=== PATIENT | male | born 1970 | race Caucasian/White ===

== ENCOUNTER 2020-01-12 07:57 | Outpatient (REF) | payer SELFPAY | END 2020-01-12 07:58 | disposition home or self-care (01) | LOC: HO.HAP 07:57 | PROVIDERS: PCP Family Medicine; Referring Provider Family Medicine; Visit Provider Family Medicine | DX: Z13.89 Encounter for screening for other disorder (principal) | CPT/HCPCS: 92700 ==

== ENCOUNTER → 2020-01-12 09:32 | Outpatient (BNVA) | payer OTHER, SELFPAY | PROVIDERS: PCP Family Medicine; Visit Provider Physician Assistant Medical | DX: M65.4 Radial styloid tenosynovitis [de Quervain] (principal); M18.11 Unilateral primary osteoarthritis of first carpometacarpal joint, right hand | CPT/HCPCS: 73110; 73130; 99203 ==

== ENCOUNTER 2020-01-28 15:17 | Outpatient (REF) | payer SELFPAY | END 2020-01-28 15:18 | disposition home or self-care (01) | LOC: HO.HAP 15:17 | PROVIDERS: PCP Family Medicine; Referring Provider Family Medicine; Visit Provider Family Medicine | DX: Z13.89 Encounter for screening for other disorder (principal) | CPT/HCPCS: 92700 ==

== ENCOUNTER → 2020-02-02 09:07 | Outpatient (BNVA) | payer OTHER, SELFPAY | PROVIDERS: PCP Family Medicine; Visit Provider Physician Assistant Medical | DX: S63.501D Unspecified sprain of right wrist, subsequent encounter (principal); X58.XXXD Exposure to other specified factors, subsequent encounter; M18.9 Osteoarthritis of first carpometacarpal joint, unspecified | CPT/HCPCS: 99213 ==

== ENCOUNTER 2020-02-16 15:51 | Outpatient (REF) | payer OTHER, SELFPAY ==
--- NOTE | 2020-02-16 16:45 | MR_ITS ---
EXAMINATION: MR WRIST WITHOUT CONTRAST, RIGHT MR HAND WITHOUT CONTRAST, RIGHT CLINICAL INFORMATION: Second pain weakness, repetitive use injury. COMPARISON: X-rays of the right hand and wrist 02/16/2020 TECHNIQUE: MRI of the right wrist was performed using routine sequences on a high-field scanner. MRI of the right hand was performed utilizing routine sequences on a high-field scanner. FINDINGS: RIGHT WRIST: TRIANGULAR FIBROCARTILAGE COMPLEX: There is some heterogeneity along the carpal side of the central disc compatible with degenerative change or partial tearing. See coronal image 10 series 2. No full-thickness defect. The periphery of the triangular fibrocartilage is intact. The dorsal and volar distal radioulnar ligaments are intact. INTRAOSSEOUS LIGAMENTS: Intact. MUSCLES AND TENDONS: Intact. ARTICULAR CARTILAGE/MARROW: There is a 6 mm oval-shaped ossific fragment abutting and possibly articulating with the dorsal aspect of the 2nd and 3rd metacarpal bases. This could reflect the carpal boss. Minimal edema versus residual red marrow in the fragment. Minimal, if any, degenerative changes crossing the possible articulation. See axial image 12 series 5. See sagittal image 9 series 9. Mild degenerative changes between the capitate and trapezoid with small subchondral or enthesopathic cysts on both sides of the joint. TRIQUETRUM PISIFORM JOINT: Mild osteoarthritis manifested by cartilage heterogeneity and marginal osteophytes. JOINT FLUID: Normal. MISCELLANEOUS: There is a lobulated fluid collection abutting the dorsal aspect of the articulation between the capitate and trapezium having the appearance of a synovial recess or ganglion cyst. This fluid collection measures 8 x 4 x 9 mm. See axial image 11 series 6. NEUROVASCULAR STRUCTURES: Normal. SUBCUTANEOUS SOFT TISSUES: Normal. RIGHT HAND: ARTICULAR CARTILAGE/MARROW: Osteoarthritis involving the IP joint of the thumb and 2nd and 3rd DIP joints, better appreciated on prior radiographs. Small marginal osteophytes noted. The remaining bone and joints of the hand are unremarkable. MUSCLES AND TENDONS: Normal. LIGAMENTOUS CAPSULAR STRUCTURES: Normal. NEUROVASCULAR STRUCTURES: Normal. SUBCUTANEOUS SOFT TISSUES: Normal. MR/MR wrist RT wo con IMPRESSION: RIGHT WRIST: Degenerative change versus partial tearing of the central triangular fibrocartilage. Osseous fragment abutting the base of the 2nd and 3rd metacarpals may reflect the carpal boss. Minimal, if any, edema or degenerative change associated with this. Correlate clinically to determine if this has any clinical significance. Mild osteoarthritis of the carpal joints. Synovial recess versus ganglion cyst along the dorsal aspect of the carpal bones, as noted. RIGHT HAND: Osteoarthritis of the interphalangeal joints better appreciated on prior radiographs.
== END 2020-02-16 15:52 | disposition home or self-care (01) ==
LOC: HO.MRI 15:51
PROVIDERS: Visit Provider Internal Medicine
DX: M25.531 Pain in right wrist (principal); M79.641 Pain in right hand; R53.1 Weakness
CPT/HCPCS: 73218; 73221

== ENCOUNTER 2020-02-21 15:09 | Outpatient (REF) | payer SELFPAY ==
--- NOTE | 2020-02-21 15:32 | MHC.AU.P13 ---
Hearing Instrument Follow-Up- Binaural Date of Visit: 02/21/20 Right Ear: Microfilm Duplicating Unit Supervisor: Model: Freemaneo M 50-312 Serial Number: [id number] Warranty: 06/29/2021 Battery Size: 312 Color: Silver [place]send Supervisor Water Softener Service: #2 medium Type of Dome: Medium Open Type of Wax Guard: CeruShield Disk Dispensed By: [facility] Date of Fittin04/16/2018 Left Ear: Microfilm Duplicating Unit Supervisor: Phonak Model: Freemaneo M 50-312 Serial Number: [id number] Warranty: 06/29/2021 Battery Size: 312 Color: Silver [place]send Supervisor Water Softener Service: #2 Medium Type of Dome: Medium Open Type of Wax Guard: CeruShield Disk Dispensed By: [facility] Date of Fittin04/16/2018 Follow-Up Summary: Patient dropped off his right hearing aid, reporting that there was no audio coming from it, but all other features are still working. Tried a different adapted physical education specialist, and still not working. Debris (possibly rust) noted in battery compartment and by adapted physical education specialist prongs. Recommendations: Hearing aid was sent to [employer] for repair. Patient will be contacted when it has arrived. Diagnosis Code(s): Primary Diagnosis: H90.3 Bilateral Sensorineural Hearing Loss Signature: Provider: Freeman Thompson, KAPIL-A
== END 2020-02-21 15:10 | disposition home or self-care (01) ==
LOC: HO.HAP 15:09
PROVIDERS: Visit Provider Family Medicine
DX: Z13.89 Encounter for screening for other disorder (principal)

== ENCOUNTER 2020-02-25 15:30 | Outpatient (RCR) | payer OTHER, SELFPAY ==
--- NOTE | 2020-03-17 14:18 | MHC.OT.DC ---
[address] [phone] F: [phone] Occupational Therapy Discharge Note Provider: HERRERA RIVERA PA-C Diagnosis: RIGHT THUMB DEQUERVAINS TENOSYNOVITIS Date of Surgery: Date of Evaluation: 01/18/20 Date of Discharge: 03/17/20 Treatments to Date: 11 Cancellations to Date: 0 No Shows to Date: 0 Discharge Status: Patient Elected to Stop Discharge Summary: PT REPORTS HIS MRI SHOWED POSSIBLE TFCC TEAR AND POSSIBLE CARPAL BOSS. ALSO WITH UNDERLYING OA... A LONG FOREARM GUTTER SPLINT TO LIMIT FOREARM ROTATION. Pt HAS NOT RESCHEDULED SINCE HIS FOLLOW UP WITH THE WORK CONNECTION. Electronically Signed By: GLORIA BRYAN OT CHT CLT Reviewed/agree with student documentation: N/A Therapist: Please Sign and return to therapist, thank you for your referral.
--- NOTE | 2020-03-17 14:19 | MHC.OT.DC ---
[address] [phone] F: [phone] Occupational Therapy Discharge Note Provider: HERRERA RIVERA PA-C Diagnosis: RIGHT THUMB DEQUERVAINS TENOSYNOVITIS Date of Surgery: Date of Evaluation: 01/18/20 Date of Discharge: 03/17/20 Treatments to Date: 11 Cancellations to Date: 0 No Shows to Date: 0 Discharge Status: Patient Elected to Stop Discharge Summary: PT REPORTS HIS MRI SHOWED POSSIBLE TFCC TEAR AND POSSIBLE CARPAL BOSS. ALSO WITH UNDERLYING OA... A LONG FOREARM GUTTER SPLINT TO LIMIT FOREARM ROTATION. Pt HAS NOT RESCHEDULED SINCE HIS FOLLOW UP WITH THE WORK CONNECTION. Electronically Signed By: GLORIA BRYAN OT CHT CLT Reviewed/agree with student documentation: N/A Therapist: Please Sign and return to therapist, thank you for your referral.
== END 2020-03-17 14:59 | disposition other institution (70) ==
LOC: HO.OT 15:30
PROVIDERS: PCP Family Medicine; Visit Provider Physician Assistant Medical
DX: M65.4 Radial styloid tenosynovitis [de Quervain] (principal)
CPT/HCPCS: 29125; 97033; 97035; 97110; 97140; 97165; 97530; 97760

== ENCOUNTER 2020-03-10 15:17 | Outpatient (REF) | payer SELFPAY ==
--- NOTE | 2020-03-10 15:47 | MHC.AU.P13 ---
Hearing Instrument Follow-Up- Binaural Date of Visit: 03/10/20 Right Ear: Mason Apprentice: Phonak Model: Diasomeeo M 50-312 Serial Number: [id number] Repair Warranty: 06/29/2021 Loss and Damage Warranty: Battery Size: 312 Color: Silver Townsend Lean Coach: #2 medium Type of Dome: Medium Open Type of Wax Guard: CeruShield Disk Left Ear: Mason Apprentice: Phonak Model: Diasomeeo M 50-312 Serial Number: [id number] RepairWarranty: 06/29/2021 Battery Size: 312 Color: Silver [place]send Lean Coach: #2 Medium Type of Dome: Medium Open Type of Wax Guard: CeruShield Disk Follow-Up Summary: Patient arrived to mushroom picker his repaired right hearing aid. He did not have the left hearing aid with him. I was planning to hook them up to [employer] at the same time, just as a precaution, to make sure the two hearing aids were communicating after repair. He will let us know if there are any problems with the two hearing aids talking, or with his phone connection. Recommendations: Patient will call if problems persist. Diagnosis Code(s): Primary Diagnosis: H90.3 Bilateral Sensorineural Hearing Loss Signature: Provider: Freeman Thompson, KAPIL-A
== END 2020-03-10 15:18 | disposition home or self-care (01) ==
LOC: HO.HAP 15:17
PROVIDERS: Visit Provider Family Medicine
DX: Z13.89 Encounter for screening for other disorder (principal)

== ENCOUNTER 2020-10-13 12:39 | Outpatient (REF) | payer SELFPAY | END 2020-10-13 12:40 | disposition home or self-care (01) | LOC: HO.HAP 12:39 | PROVIDERS: Visit Provider Family Medicine | DX: Z13.89 Encounter for screening for other disorder (principal) ==

== ENCOUNTER 2020-10-16 13:48 | Outpatient (REF) | payer SELFPAY | END 2020-10-16 13:49 | disposition home or self-care (01) | LOC: HO.HAP 13:48 | PROVIDERS: Visit Provider Family Medicine | DX: Z13.89 Encounter for screening for other disorder (principal) ==